=== PATIENT | female | born 1995 | race Caucasian/White ===

== ENCOUNTER → 2016-10-12 | Outpatient (CLI) | payer BC, OTHER ==
[~2016-10-12] MED LIST: CALC0.2510 PO; CALC500C70 PO; DIPH1TAB PO; EPP3/2 IM; FAMO20TA11 PO; MAGN400T6 PO; METO-157 PO; PRED-301 PO; SIRO0.5T PO; TACR1CAP PO
--- NOTE | 2016-10-12 12:16 | DIAGNOSTIC IMAGING REPORT ---
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 FINDINGS: The patient has a chronological age of 20 years and 10 months. The patient's epiphyses are all fused, indicating a skeletal age of greater than 17 years. IMPRESSION: Skeletal mature hands and wrists. Electronically signed by: Sarthak Waters M.D. 10/12/2016 12:15 PM Dictated Date/Time: 10/12/2016 12:10 PM
== END | disposition home or self-care (01) ==
LOC: C.RAD 11:33
PROVIDERS: ATTEND Internal Medicine Endocrinology, Diabetes & Metabolism
DX: E30.0 Delayed puberty (principal)

== ENCOUNTER → 2017-01-27 | Day surgery (SDC) | payer BC, OTHER ==
[~2017-01-27] VITALS: Ht 152.4 cm; Wt 65.7 kg
[~2017-01-27] MED LIST changes: +PATIENT'S ALLERGY INFO NEEDS ENTERED SCH; +ZOLEDRONIC ACID INJ 5 MG in EMPTY BAG 0 ML IV SCH
[2017-01-27 14:24] VITALS: BP 111/76; PULSE 116; TEMP 36.7; O2SAT 98; Ht 152.4 cm; Wt 65.7 kg
[2017-01-27 15:22] VITALS: BP 114/74; PULSE 112; TEMP 36.6; O2SAT 97
== END | disposition home or self-care (01) ==
LOC: C.MTU 14:17
PROVIDERS: ATTEND Internal Medicine Endocrinology, Diabetes & Metabolism
DX: M81.8 Other osteoporosis without current pathological fracture (principal); T38.0X5A Adverse effect of glucocorticoids and synthetic analogues, initial encounter